=== PATIENT | female | born 1950 ===

== ENCOUNTER → 2018-03-07 | Outpatient (REF) | payer MEDICARE ==
[2017-07-06 14:44] VITALS: BMI 23.8
[~2018-03-07] MED LIST: ASPI-757 PO; GLUC1TAB66 PO; LISI20TA29 PO; MULT1CAP59 PO; OXYC-869 PO; TRAM100T8 PO; ZOLP-1 PO; [UNRECOGNIZED DRUG - CODE] TOP
[2018-03-07 10:15] LABS: PLATELET COUNT, AUTOMATED 428 K/uL (150-450)
== END ==
LOC: ZZSENDIN 10:02
PROVIDERS: ATTEND Physician Assistant
DX: D64.9 Anemia, unspecified (principal)
CPT/HCPCS: 85025

== ENCOUNTER → 2018-05-31 | Outpatient (CLI) | payer MEDICARE ==
[2017-07-06 14:44] VITALS: BMI 23.8
--- NOTE | 2018-05-31 15:34 | RADIOLOGY IMAGING REPORT ---
FACILITY: [facility] PATIENT NAME: Anne Bennett : 1950 MR: [id number] V: [id number] EXAM DATE: ORDERING PHYSICIAN: KWABENA KAY TECHNOLOGIST: Location: [facility] [place] Patient: Anne Bennett : 1950 Visit/Account:[id number] Date of Sevice: 05/31/2018 DEXA Scan Clinical history: Postmenopausal. Comparison: None available. LUMBAR SPINE: The bone mineral density (BMD) measured from L1-L4 correlates with a Z-score -2.1 and a T-score of -3 .1 which is osteoporosis as defined by the World Health Organization. The corresponding risk of frac ture in the lumbar spine is 8-12 times increased compared with a young adult reference population. HIP: Bone mineral density (BMD) measured in the Left total hip region correlates with a Z-score -2.4 and a T-score of -3.2 which is osteoporosis as defined by the World Health Organization. The correspondin g risk of fracture in the hip is 8-12 times increased compared with a young adult reference populatio n. T score left femoral neck -2.5 Bone mineral density (BMD) measured in the Femoral Neck region measures 0.692 g/cm2. Impression: 1. Lumbar spine: Osteoporosis. 2. Left Hip: Osteoporosis. 3. Femoral Neck: Bone Mineral Density is 0.692 g/cm2 The next DEXA scan of this patient should include the following sites: L1-L4 and the left hip. FRAX? WHO Fracture Risk Assessment Tool link: <http://www.shef.ac.uk/FRAX/tool.jsp?locationValue=9> PLEASE NOTE: 1) The World Health Organization defines low BMD as follows: T-score Normal > -1 Osteopenia < -1 and > -2.5 Osteoporosis < -2.5 without fractures Established osteoporosis < -2.5 with fractures 2) In general, you may wish to consider: Diagnosis Treatment Follow-up DEXA Normal BMD Prevention 2-3 years Osteopenia Prevention/therapy 1-2 years Osteoporosis Therapy Yearly 3) Fracture risk estimated from the T-score is more accurate for vertebral fractures (often spontane ous) than for hip fractures. Report Dictated By: Paty Ruiz MD at 05/31/2018 3:28 PM Report E-Signed By: Paty Ruiz MD at 05/31/2018 3:30 PM WSN:[email or web address]
--- NOTE | 2018-06-01 10:04 | RADIOLOGY IMAGING REPORT ---
FACILITY: [facility] PATIENT NAME: EDWIN FREEDMAN : [id number] MR: [id number] V: [id number] EXAM DATE: [id number] ORDERING PHYSICIAN: KWABENA KAY TECHNOLOGIST: Roxanne Hill PROCEDURE:BILATERAL DIGITAL SCREENING MAMMOGRAM WITH CAD ASSISTED INTERPRETATION & 3D TOMOSYNTHESIS COMPARISON:Prior mammograms 10/05/16, 03/10/16, 06/04/15. INDICATIONS:screening FINDINGS: A small amount of fibroglandular tissue is seen throughout the breasts. The parenchymal pattern has remained stable allowing for difference in mammographic technique & patient positioning. There is no evidence of malignant appearing mass, malignant appearing calcifications or other secondary sign of malignancy in either breast. DIAGNOSTIC CATEGORY 1--NEGATIVE. RECOMMENDATIONS: ROUTINE MAMMOGRAM AND CLINICAL EVALUATION. IMPRESSION: BIRADS 1: Negative. No significant abnormality is seen. Dictated by: Paty Ruiz M.D. on 05/31/2018 at 15:14 Transcribed by: TILA on 05/31/2018 at 15:22 Approved by: Paty Ruiz M.D. on 06/01/2018 at 10:03 [facility]
== END ==
LOC: MAMO 00:22
PROVIDERS: ATTEND Physician Assistant
DX: Z12.31 Encounter for screening mammogram for malignant neoplasm of breast (principal); M81.0 Age-related osteoporosis without current pathological fracture
CPT/HCPCS: 77063; 77067; 77080